=== PATIENT | female | born 1990 | race African-American/Black ===

== ENCOUNTER 2019-09-02 14:46 | Emergency (ER) | payer MEDICAID ==
[~2019-09-02] VITALS: Ht 149.9 cm; Wt 100.8 kg
[2019-09-02 14:51] VITALS: BP 141/80
[2019-09-02] MEDS ORDERED: SODIUM CHLORIDE FLUSH 10ML SYR IVF ONE (15:30)
[2019-09-02] MEDS ORDERED: ONDANSETRON 2MG/ML, 2ML IVPush ONE (15:30)
[2019-09-02] MEDS ORDERED: SODIUM CHLORIDE 0.9% 1,000ML IVBOLUS ONE (15:30)
--- NOTE | 2019-09-02 15:40 | NUR ---
PT AMBULATED TO [facility] STEADY GAIT TO PROVIDE URINE SAMPLE. UA ORDERED PER PROTOCOL AND SENT TO LAB. PIV PLACED, LABS COLLECTED AND SENT TO LAB. IVF RUNNING.
[2019-09-02 15:42] LABS: MICROSCOPIC INDICATED
[2019-09-02] MEDS ORDERED: ONDANSETRON 2MG/ML, 2ML ONE (15:55)
[2019-09-02 16:01] LABS: ALANINE AMINOTRANSFERASE 33 U/L (12-78); ALBUMIN 3.5 g/dL (3.4-5.0); ANION GAP 10 mmol/L (5-15); CALCIUM 9.8 mg/dL (8.5-10.1); CHLORIDE 109 mmol/L (98-107); CREATININE 0.54 mg/dL (0.55-1.02)
[2019-09-02 16:03] LABS: ALKALINE PHOSPHATASE 91 U/L (45-117); BILIRUBIN,TOTAL 0.4 mg/dL (0.2-1.0); TOTAL PROTEIN 7.7 g/dL (6.4-8.2)
[2019-09-02 16:10] LABS: BASOPHILS # (AUTO) 0.03 x10^3/uL (0-0.1); BASOPHILS % (AUTO) 0 % (0-1); EOSINOPHILS # (AUTO) 0.01 x10^3/uL (0-0.4); EOSINOPHILS % (AUTO) 0 % (1-7); LYMPHOCYTES # (AUTO) 1.83 x10^3/uL (1-3.4); LYMPHOCYTES % (AUTO) 26 % (22-44); MD NO; MEAN CORPUSCULAR HEMOGLOBIN 30.1 pg (27.0-34.8); MEAN CORPUSCULAR VOLUME 91.1 fL (80-100); MONOCYTES # (AUTO) 0.31 x10^3/uL (0.2-0.8); MONOCYTES % (AUTO) 4 % (2-9); NEUTROPHILS # (AUTO) 4.99 x10^3/uL (1.8-6.8); NEUTROPHILS % (AUTO) 70 % (42-75); PLATELET COUNT 295 x10^3/uL (130-400); RED CELL DISTRIBUTION WIDTH 12.9 % (9.6-15.2)
--- NOTE | 2019-09-02 16:35 | NUR ---
ALL RESULTS ARE BACK AT THIS TIME. CHART UP FOR RECHECK.
[2019-09-02] MEDS ORDERED: CEFTRIAXONE PMX 1GM/50ML 50 ML IV ONE (17:00)
[2019-09-02] MEDS ORDERED: SODIUM CHLORIDE 0.9%, 500ML IVBOLUS ONE (17:00)
[2019-09-02] MEDS ORDERED: CEFTRIAXONE PMX 1GM/50ML 50 ML ONE (17:08)
== END 2019-09-02 21:36 | disposition home or self-care (01) ==
LOC: ED 18:31
DX: O21.1 Hyperemesis gravidarum with metabolic disturbance (principal); O23.11 Infections of bladder in pregnancy, first trimester; K59.00 Constipation, unspecified; Z3A.17 17 weeks gestation of pregnancy
CPT/HCPCS: 36415; 76815; 80053; 81001; 85025; 87086; 96361; 96365; 96375; 99284; J0696; J2405; J7030; J7040

== ENCOUNTER 2019-10-24 20:59 | Outpatient (CLI) | payer MEDICAID ==
[~2019-10-24] VITALS: Ht 152.4 cm; Wt 104.9 kg
[2019-10-24] MEDS ORDERED: SODIUM CHLORIDE 0.9% 1,000ML IVBOLUS ONE (21:30)
[2019-10-24] MEDS ORDERED: ONDANSETRON 2MG/ML, 2ML IVPush ONE (21:30)
[2019-10-24 21:40] LABS: MICROSCOPIC INDICATED
[2019-10-24 21:43] LABS: BASOPHILS # (AUTO) 0.01 x10^3/uL (0-0.1); BASOPHILS % (AUTO) 0 % (0-1); EOSINOPHILS % (AUTO) 0 % (1-7); LYMPHOCYTES # (AUTO) 0.54 x10^3/uL (1-3.4); LYMPHOCYTES % (AUTO) 8 % (22-44); MD NO; MEAN CORPUSCULAR HEMOGLOBIN 30.3 pg (27.0-34.8); MEAN CORPUSCULAR HGB CONC 32.8 g/dL (32.4-35.8); MEAN CORPUSCULAR VOLUME 92.4 fL (80-100); MEAN PLATELET VOLUME 7.7 fL (7.4-10.4); MONOCYTES # (AUTO) 0.13 x10^3/uL (0.2-0.8); MONOCYTES % (AUTO) 2 % (2-9); NEUTROPHILS # (AUTO) 5.95 x10^3/uL (1.8-6.8); NEUTROPHILS % (AUTO) 90 % (42-75); PLATELET COUNT 256 x10^3/uL (130-400); RED BLOOD COUNT 3.94 x10^6/uL (3.82-5.3); RED CELL DISTRIBUTION WIDTH 14.2 % (9.6-15.2)
[2019-10-24 21:52] LABS: ALANINE AMINOTRANSFERASE 36 U/L (12-78); ALBUMIN 2.8 g/dL (3.4-5.0); ANION GAP 9 mmol/L (5-15); CALCIUM 8.9 mg/dL (8.5-10.1); CHLORIDE 110 mmol/L (98-107); CREATININE 0.53 mg/dL (0.55-1.02)
[2019-10-24 21:55] LABS: ALKALINE PHOSPHATASE 78 U/L (45-117); BILIRUBIN,TOTAL 0.4 mg/dL (0.2-1.0); TOTAL PROTEIN 6.7 g/dL (6.4-8.2)
[2019-10-24] MEDS ORDERED: LACTATED RINGERS 1,000 ML IVBOLUS ONE (22:00)
[2019-10-24 22:01] VITALS: BP 122/86
[2019-10-24] MEDS ORDERED: ONDANSETRON 2MG/ML, 2ML ONE (22:58)
== END 2019-10-24 23:15 | disposition home or self-care (01) ==
LOC: LDOP 20:59
PROVIDERS: ATTEND Obstetrics & Gynecology
DX: O21.1 Hyperemesis gravidarum with metabolic disturbance (principal); Z3A.22 22 weeks gestation of pregnancy
CPT/HCPCS: 36415; 59025; 80053; 81001; 85025; 87086; 96361; 96374; 99211; J2405; J7120; 96360; G0463

== ENCOUNTER 2020-01-05 23:56 | Outpatient (CLI) | payer MEDICAID ==
[~2020-01-05] VITALS: Ht 149.9 cm; Wt 103.0 kg
[2020-01-06] MEDS ORDERED: PREN1TAB79 PO (00:17)
[2020-01-06 00:18] LABS: MICROSCOPIC NOT IND
[2020-01-06 00:46] VITALS: BP 130/89
== END 2020-01-06 02:04 | disposition home or self-care (01) ==
LOC: LDOP 23:56
PROVIDERS: ATTEND Obstetrics & Gynecology
DX: O26.893 Other specified pregnancy related conditions, third trimester (principal); R10.9 Unspecified abdominal pain; Z3A.34 34 weeks gestation of pregnancy
CPT/HCPCS: 59025; 81003; 87086

== ENCOUNTER 2020-01-08 22:29 | Outpatient (CLI) | payer MEDICAID ==
[~2020-01-08] VITALS: Ht 149.9 cm; Wt 100.0 kg
[~2020-01-08 22:29] MED LIST: PREN1TAB79 PO
[2020-01-08 23:22] LABS: BASOPHILS % (AUTO) 0 % (0-1); EOSINOPHILS % (AUTO) 1 % (1-7); LYMPHOCYTES % (AUTO) 23 % (22-44); MEAN CORPUSCULAR HEMOGLOBIN 29.8 pg (27.0-34.8); MEAN CORPUSCULAR HGB CONC 32.9 g/dL (32.4-35.8); MEAN PLATELET VOLUME 8.3 fL (7.4-10.4); MONOCYTES % (AUTO) 8 % (2-9); NEUTROPHILS % (AUTO) 68 % (42-75); PLATELET COUNT 255 x10^3/uL (130-400); RED BLOOD COUNT 3.91 x10^6/uL (3.82-5.3); RED CELL DISTRIBUTION WIDTH 13.9 % (9.6-15.2)
[2020-01-08 23:24] LABS: MD NO
[2020-01-08 23:31] LABS: ALANINE AMINOTRANSFERASE 12 U/L (12-78); ALBUMIN 2.7 g/dL (3.4-5.0); ANION GAP 7 mmol/L (5-15); CALCIUM 8.9 mg/dL (8.5-10.1); CHLORIDE 111 mmol/L (98-107); CREATININE 0.63 mg/dL (0.55-1.02)
[2020-01-08 23:33] LABS: ALKALINE PHOSPHATASE 197 U/L (45-117); BILIRUBIN,TOTAL 0.2 mg/dL (0.2-1.0); TOTAL PROTEIN 6.6 g/dL (6.4-8.2)
[2020-01-08 23:35] VITALS: BP 134/98
[2020-01-08 23:35] LABS: BILIRUBIN, DIRECT < 0.1 mg/dL (0.1-0.2)
[2020-01-08 23:47] LABS: MICROSCOPIC NOT IND
[2020-01-09 00:04] LABS: CREATININE,URINE RANDOM 86.1 mg/dL
== END 2020-01-09 00:19 | disposition home or self-care (01) ==
LOC: LDOP 22:29
PROVIDERS: ATTEND Obstetrics & Gynecology
DX: O36.8130 Decreased fetal movements, third trimester, not applicable or unspecified (principal); Z3A.35 35 weeks gestation of pregnancy
CPT/HCPCS: 36415; 59025; 80053; 81003; 82248; 82570; 84112; 84156; 84550; 85025

== ENCOUNTER 2020-01-30 10:55 | Outpatient (CLI) | payer MEDICAID ==
[2020-01-30 11:40] LABS: BASOPHILS % (AUTO) 1 % (0-1); EOSINOPHILS % (AUTO) 0 % (1-7); LYMPHOCYTES % (AUTO) 25 % (22-44); MEAN CORPUSCULAR HEMOGLOBIN 29.8 pg (27.0-34.8); MEAN CORPUSCULAR HGB CONC 33.2 g/dL (32.4-35.8); MEAN PLATELET VOLUME 8.7 fL (7.4-10.4); MONOCYTES % (AUTO) 7 % (2-9); NEUTROPHILS % (AUTO) 67 % (42-75); PLATELET COUNT 242 x10^3/uL (130-400); RED BLOOD COUNT 3.73 x10^6/uL (3.82-5.3); RED CELL DISTRIBUTION WIDTH 13.6 % (9.6-15.2)
[2020-01-30 11:41] LABS: MD NO
[2020-01-30 11:45] LABS: ALANINE AMINOTRANSFERASE 13 U/L (12-78); ALBUMIN 2.4 g/dL (3.4-5.0); ANION GAP 9 mmol/L (5-15); BILIRUBIN, DIRECT 0.1 mg/dL (0.1-0.2); CALCIUM 8.8 mg/dL (8.5-10.1); CHLORIDE 110 mmol/L (98-107)
[2020-01-30 11:48] LABS: ALKALINE PHOSPHATASE 202 U/L (45-117); BILIRUBIN,TOTAL 0.4 mg/dL (0.2-1.0); TOTAL PROTEIN 6.2 g/dL (6.4-8.2)
[2020-01-30 12:20] LABS: MICROSCOPIC INDICATED
== END 2020-01-30 13:25 | disposition home or self-care (01) ==
LOC: LDOP 10:55
PROVIDERS: ATTEND Obstetrics & Gynecology
DX: O16.3 Unspecified maternal hypertension, third trimester (principal); Z3A.37 37 weeks gestation of pregnancy
CPT/HCPCS: 36415; 59025; 76815; 80053; 81001; 82248; 82570; 84156; 84550; 85025; 87086

== ENCOUNTER 2020-01-30 22:53 | Inpatient (IN) | payer MEDICAID ==
[~2020-01-30] VITALS: Ht 149.9 cm; Wt 105.9 kg
[2020-01-30 23:24] LABS: MICROSCOPIC INDICATED
[2020-01-30 23:25] VITALS: BP 139/93
[2020-01-31] MEDS: LACTATED RINGERS 1,000 ML IV SCH ×3 (00:05→16:30)
[2020-01-31] MEDS ORDERED: NEWBORN KIT ONE (00:18)
[2020-01-31] MEDS ORDERED: MISOPROSTOL 25 MCG TABLET ONE ×4 (00:20→11:32)
[2020-01-31] MEDS ORDERED: TERBUTALINE 1 MG/ML, 1ML IVPush PRN (00:30)
[2020-01-31] MEDS ORDERED: METOCLOPRAMIDE 5 MG/ML, 2ML IVPush PRN (00:30)
[2020-01-31] MEDS ORDERED: TERBUTALINE 1 MG/ML, 1ML SQ PRN (00:30)
[2020-01-31] MEDS ORDERED: D5%-LACTATED RINGERS 1,000 ML IV SCH (00:30)
[2020-01-31] MEDS ORDERED: OXYTOCIN 30U/ 0.9% NaCL 500ML 500 ML IV ONE (00:30)
[2020-01-31] MEDS ORDERED: CALCIUM CARBONATE 500 MG TAB.CHEW PO PRN (00:30)
[2020-01-31] MEDS ORDERED: ONDANSETRON 2MG/ML, 2ML IVPush PRN (00:30)
[2020-01-31] MEDS ORDERED: FENTANYL PF 100 MCG/2ML IV PRN (00:30)
[2020-01-31] MEDS ORDERED: SODIUM CITRATE/CITRIC ACID 30 ML UDC PO PRN (00:30)
[2020-01-31] MEDS ORDERED: FENTANYL PF 100 MCG/2ML IVPush PRN (00:30)
[2020-01-31] MEDS ORDERED: ALUMINUM/MAG/SIMETHICONE 30 ML UDC PO PRN (00:30)
[2020-01-31] MEDS ORDERED: SODIUM CHLORIDE FLUSH 10ML SYR IVF PRN (00:30)
[2020-01-31 00:45] LABS: BASOPHILS % (AUTO) 1 % (0-1); EOSINOPHILS % (AUTO) 0 % (1-7); LYMPHOCYTES % (AUTO) 25 % (22-44); MEAN CORPUSCULAR HEMOGLOBIN 29.7 pg (27.0-34.8); MEAN CORPUSCULAR HGB CONC 32.9 g/dL (32.4-35.8); MEAN PLATELET VOLUME 8.4 fL (7.4-10.4); MONOCYTES % (AUTO) 7 % (2-9); NEUTROPHILS % (AUTO) 67 % (42-75); PLATELET COUNT 261 x10^3/uL (130-400); RED BLOOD COUNT 3.67 x10^6/uL (3.82-5.3); RED CELL DISTRIBUTION WIDTH 13.8 % (9.6-15.2)
[2020-01-31 00:48] LABS: MD NO
[2020-01-31 00:50] VITALS: BP 140/88
[2020-01-31] MEDS: MISOPROSTOL 25 MCG TABLET VG PRN ×2 (02:23→07:30)
[2020-01-31] MEDS ORDERED: TERBUTALINE 1 MG/ML, 1ML ONE (06:16)
[2020-01-31] MEDS ORDERED: LIDOCAINE 1%, 20ML ONE (06:16)
[2020-01-31] MEDS ORDERED: MISOPROSTOL 200 MCG TABLET ONE (06:16)
[2020-01-31] MEDS ORDERED: OXYTOCIN 30U/ 0.9% NaCL 500ML 500 ML ONE (11:32)
[2020-01-31] MEDS ORDERED: FENTANYL PF 100 MCG/2ML ONE ×2 (14:03→17:11)
[2020-01-31] MEDS ORDERED: OXYTOCIN 30U/ 0.9% NaCL 500ML 500 ML IV PRN (14:30)
[2020-01-31] MEDS ORDERED: FENTANYL/BUPIV./NS/PF 250 ML EPIDCONT ONE (17:44)
[2020-01-31] MEDS ORDERED: BUPIVACAINE 0.25% ONE (17:44)
[2020-01-31] MEDS ORDERED: ONDANSETRON 2MG/ML, 2ML ONE (20:23)
[2020-01-31] MEDS ORDERED: LIDOCAINE/MPF 2%-EPI 1:200K, 20 ML ONE (20:42)
[2020-01-31] MEDS ORDERED: LABETALOL 5MG/ML, 20ML ONE (20:49)
[2020-01-31] MEDS ORDERED: hydrALAzine 20 MG/ML, 1ML IVPush ONE (21:00)
[2020-01-31] MEDS ORDERED: LABETALOL 5MG/ML, 20ML IVPush PRN ×3 (21:00)
[2020-01-31] MEDS ORDERED: ACETAMINOPHEN 325 MG TABLET ONE (21:27)
[2020-01-31] MEDS: ACETAMINOPHEN 325 MG TABLET PO PRN (21:32)
[2020-01-31] MEDS: AMPICILLIN 2 GM in SODIUM CHLORIDE 0.9% 100 ML IV SCH (21:52)
[2020-01-31] MEDS ORDERED: PHARMACOKINETIC CONSULTATION MC ONE (22:00)
[2020-01-31] MEDS ORDERED: GENTAMICIN PER PHARMACY MC PRN (22:00)
[2020-01-31] MEDS ORDERED: PHARMACOKINETIC MONITORING MC PRN (22:00)
[2020-01-31] MEDS: GENTAMICIN 100 MG in SODIUM CHLORIDE 0.9% 50 ML IV SCH (22:35)
[2020-02-01] MEDS ORDERED: IBUPROFEN 800 MG TABLET PO PRN (01:30)
[2020-02-01] MEDS ORDERED: IBUPROFEN 200 MG TABLET PO PRN (01:30)
[2020-02-01] MEDS ORDERED: HYDROcodone/APAP 5/325 TABLET PO PRN (01:30)
[2020-02-01] MEDS ORDERED: MISOPROSTOL 200 MCG TABLET PR PRN (01:30)
[2020-02-01] MEDS ORDERED: OXYcodone/APAP 5/325MG TABLET PO PRN (01:30)
[2020-02-01] MEDS ORDERED: BISACODYL 10 MG SUPP PR PRN (01:30)
[2020-02-01] MEDS ORDERED: RHOGAM FROM BLOOD BANK 1 NOTE EA IM/IV ONE (01:30)
[2020-02-01] MEDS ORDERED: ACETAMINOPHEN 325 MG TABLET PO PRN (01:30)
[2020-02-01] MEDS ORDERED: ONDANSETRON 2MG/ML, 2ML IV PRN (01:30)
[2020-02-01] MEDS ORDERED: ACETAMINOPHEN 500 MG TABLET ONE (02:24)
[2020-02-01] MEDS ORDERED: ACETAMINOPHEN 500 MG TABLET PO PRN (02:30)
[2020-02-01] MEDS ORDERED: MAGNESIUM SULF. PMX 20GM/500ML 500 ML IV ONE ×4 (02:36→22:12)
[2020-02-01] MEDS ORDERED: MAGNESIUM SULFATE PMX 4GM/100M 100 ML ONE (02:36)
[2020-02-01] MEDS ORDERED: OXYTOCIN 30U/ 0.9% NaCL 500ML 500 ML ONE ×2 (02:37→12:33)
[2020-02-01] MEDS: LACTATED RINGERS 1,000 ML IV SCH (02:47)
[2020-02-01] MEDS ORDERED: LABETALOL 5MG/ML, 20ML IVPush ONE (02:50)
[2020-02-01] MEDS ORDERED: MAGNESIUM SULFATE PMX 4GM/100M 100 ML IVPB ONE (03:00)
[2020-02-01] MEDS: MAGNESIUM SULF. PMX 20GM/500ML 500 ML IV SCH ×3 (03:07→22:13)
[2020-02-01] MEDS: AMPICILLIN 2 GM in SODIUM CHLORIDE 0.9% 100 ML IV SCH ×4 (04:12→21:33)
[2020-02-01 05:41] VITALS: BP 137/67
[2020-02-01] MEDS: GENTAMICIN 100 MG in SODIUM CHLORIDE 0.9% 50 ML IV SCH ×3 (06:00→22:04)
[2020-02-01 07:30] VITALS: BP 124/74
[2020-02-01 09:24] LABS: BASOPHILS % (AUTO) 0 % (0-1); EOSINOPHILS % (AUTO) 0 % (1-7); LYMPHOCYTES % (AUTO) 5 % (22-44); MEAN CORPUSCULAR HEMOGLOBIN 29.9 pg (27.0-34.8); MEAN CORPUSCULAR HGB CONC 33.1 g/dL (32.4-35.8); MEAN PLATELET VOLUME 8.3 fL (7.4-10.4); MONOCYTES % (AUTO) 8 % (2-9); NEUTROPHILS % (AUTO) 87 % (42-75); PLATELET COUNT 235 x10^3/uL (130-400); RED CELL DISTRIBUTION WIDTH 13.8 % (9.6-15.2)
[2020-02-01 09:29] LABS: MD NO
[2020-02-01 09:33] LABS: ALANINE AMINOTRANSFERASE 11 U/L (12-78); ALBUMIN 2.3 g/dL (3.4-5.0); ANION GAP 7 mmol/L (5-15); CALCIUM 8.2 mg/dL (8.5-10.1); CHLORIDE 114 mmol/L (98-107); CREATININE 0.64 mg/dL (0.55-1.02)
[2020-02-01 09:35] LABS: ALKALINE PHOSPHATASE 201 U/L (45-117); BILIRUBIN,TOTAL 0.4 mg/dL (0.2-1.0)
[2020-02-01] MEDS: OXYTOCIN 30U/ 0.9% NaCL 500ML 500 ML IV SCH ×3 (11:30→21:30)
[2020-02-01] MEDS ORDERED: IBUPROFEN 800 MG TABLET ONE (12:05)
[2020-02-01] MEDS ORDERED: LABETALOL 200 MG TABLET ONE (18:12)
[2020-02-01] MEDS: LABETALOL 200 MG TABLET PO SCH (18:15)
[2020-02-01] MEDS ORDERED: LABETALOL 100 MG TABLET PO SCH ×2 (18:30)
[2020-02-01] MEDS ORDERED: PRENATAL VIT/IRON/FA 1 EACH TABLET ONE (20:37)
[2020-02-01] MEDS: PRENATAL VIT/IRON/FA 1 EACH TABLET PO SCH (20:39)
[2020-02-02] MEDS ORDERED: ACETAMINOPHEN 325 MG TABLET ONE (01:12)
[2020-02-02 03:20] VITALS: BP 121/79
[2020-02-02 07:05] VITALS: BP 136/85
[2020-02-02] MEDS: DOCUSATE 100 MG CAPSULE PO PRN (08:06)
[2020-02-02] MEDS: LABETALOL 200 MG TABLET PO SCH ×2 (08:06→18:38)
[2020-02-02] MEDS: PRENATAL VIT/IRON/FA 1 EACH TABLET PO SCH (08:06)
[2020-02-02 12:30] VITALS: BP 137/87
[2020-02-02] MEDS: ACETAMINOPHEN 325 MG TABLET PO PRN (14:18)
[2020-02-02 16:55] VITALS: BP 136/80
[2020-02-02 20:00] VITALS: BP 132/93
[2020-02-03 00:15] VITALS: BP 124/80
[2020-02-03 05:25] VITALS: BP 136/86
[2020-02-03 07:25] VITALS: BP 164/106
[2020-02-03] MEDS: ACETAMINOPHEN 325 MG TABLET PO PRN ×2 (07:51→15:07)
[2020-02-03] MEDS: DOCUSATE 100 MG CAPSULE PO PRN (07:51)
[2020-02-03] MEDS: PRENATAL VIT/IRON/FA 1 EACH TABLET PO SCH (07:51)
[2020-02-03] MEDS: LABETALOL 200 MG TABLET PO SCH (07:51)
[2020-02-03 09:30] VITALS: BP 120/83
[2020-02-03] MEDS ORDERED: LABE200T6 PO (10:27)
[2020-02-03 12:10] VITALS: BP 123/83
== END 2020-02-03 16:05 | disposition home or self-care (01) | DRG 805 ==
LOC: LDOP 22:53 → LDIP 01-31 00:16 → 2NE 02-01 04:30 → 2NW 02-02 02:21
PROVIDERS: ADMIT Obstetrics & Gynecology; ATTEND Obstetrics & Gynecology
PROC: 10E0XZZ Delivery of Products of Conception, External Approach (ICD-10-PCS; principal; 2020-02-03)
PROC: 0KQM0ZZ Repair Perineum Muscle, Open Approach (ICD-10-PCS; 2020-02-03)
PROC: 3E0R3BZ Introduction of Anesthetic Agent into Spinal Canal, Percutaneous Approach (ICD-10-PCS; 2020-02-03)
PROC: 00HU33Z Insertion of Infusion Device into Spinal Canal, Percutaneous Approach (ICD-10-PCS; 2020-02-03)
DX: O13.4 Gestational [pregnancy-induced] hypertension without significant proteinuria, complicating childbirth (principal); O41.1230 Chorioamnionitis, third trimester, not applicable or unspecified; Z37.0 Single live birth; O99.354 Diseases of the nervous system complicating childbirth; Z20.828 Contact with and (suspected) exposure to other viral communicable diseases; O69.81X0 Labor and delivery complicated by cord around neck, without compression, not applicable or unspecified; E28.2 Polycystic ovarian syndrome; F32.9 Major depressive disorder, single episode, unspecified; G43.909 Migraine, unspecified, not intractable, without status migrainosus; O70.1 Second degree perineal laceration during delivery; Z3A.37 37 weeks gestation of pregnancy; Z82.49 Family history of ischemic heart disease and other diseases of the circulatory system; Z83.3 Family history of diabetes mellitus; O99.344 Other mental disorders complicating childbirth; O14.14 Severe pre-eclampsia complicating childbirth
CPT/HCPCS: 36415; J7121; 80053; 81001; 82570; 83735; 84156; 85025; 86592; 86850; 86900; 87635; G0378; J0290; J2405; J3010; J1580; J2590; J3475; J7120